=== PATIENT | male | born 1945 | race Caucasian/White ===

== ENCOUNTER → 2024-07-21 | Outpatient (CLI) | payer MEDICARE, SELFPAY ==
[2024-07-21 10:25] LABS: OBS Card Expiration Date 2026/09; OBS Card Lot # 23001; OBS Performed By LAB; OBS QC OK? Yes
[2024-07-21 14:03] LABS: OBS Developer Lot # 23003
[2024-07-21 14:05] LABS: Occult Blood, Stool Negative (Negative); Occult Blood, Stool #2 Negative (Negative); Occult Blood, Stool #3 Negative (Negative)
== END | disposition home or self-care (01) ==
LOC: SLDO 10:18
PROVIDERS: Referring Provider Internal Medicine Cardiovascular Disease; Visit Provider Internal Medicine Cardiovascular Disease
DX: Z12.11 Encounter for screening for malignant neoplasm of colon (principal)
CPT/HCPCS: 82270

== ENCOUNTER 2024-11-26 10:19 | Day surgery (SDC) | payer MEDICARE, SELFPAY ==
--- NOTE | 2024-11-25 07:00 | EKG_ITS ---
[facility] Test Date: 2024-11-25 Pat Name: ERICA HINES Department: Room: - Gender: Male [employer]: TAB : 1945 Requested By: Db Clarke Order Number: [id number] Reading MD: Db Clarke Measurements Intervals [place] Rate: 52 P: 43 MS: 191 QRS: 18 QRSD: 84 T: 22 QT: 422 QTc: 395 Interpretive Statements SINUS BRADYCARDIA Compared to ECG 05/17/2022 16:41:59 Sinus rhythm no longer present Left ventricular hypertrophy no longer present /store/S0/[id number]/ecg/[id number].pdf
[2024-11-25 12:33] LABS: Basophils % (Auto) 0 % (0-2.5); Eosinophils # (Auto) 0.2 Thou/mm3 (0.0-0.5); Eosinophils % (Auto) 3 % (0-10); Hematocrit 42.7 % (41.0-53.0); Hemoglobin 14.1 g/dL (13.5-16.0); Immature Granulocytes % (Auto) 1 % (0-0); Immature Granulocytes Auto 0.03 Thou/mm3 (0.00-0.00); Lymphocytes # (Auto) 1.1 Thou/mm3 (1.0-4.8); Lymphocytes % (Auto) 19 % (10-50); Mean Corpuscular Hemoglobin 30.1 pg (25.0-35.0); Mean Corpuscular Volume 91 fL (80-100); Monocytes # (Auto) 0.7 Thou/mm3 (0.0-0.8); Monocytes % (Auto) 11 % (0-12); Neutrophils # (Auto) 3.8 Thou/mm3 (1.8-7.7); Neutrophils % (Auto) 65 % (37-80); Nucleated Red Blood Cell % 0 /100 WBC (0); Platelet Count 195 Thou/mm3 (140-440); RDW Standard Deviation 40.9 fL (35.1-43.9); Red Blood Count 4.69 Miln/mm3 (4.50-5.90); White Blood Count 5.8 Thou/mm3 (3.8-10.6)
[2024-11-25 12:38] LABS: Anion Gap 8 (7-16); BUN/Creatinine Ratio 18 Ratio (12-20); Blood Urea Nitrogen 31 mg/dL (9-23); Calcium 9.6 mg/dL (8.3-10.6); Carbon Dioxide 29.9 mMol/L (20.0-31.0); Chloride 106 mMol/L (98-107); Creatinine (Component) 1.7 mg/dL (0.6-1.3); Glucose 88 mg/dL (74-106); Osmolality,Calculated 292 (275-295); Potassium 4.4 mMol/L (3.4-5.1); Sodium 144 mMol/L (136-145); eGFR 41 See Note
[2024-11-25 12:42] LABS: INR 1.1 (0.9-1.3); Partial Thromboplastin Time 25.4 Seconds (22.0-36.0); Prothrombin Time 11.5 Seconds (9.0-12.2)
[2024-11-26] VITALS (12 sets, daily range): BP systolic 106–146; BP diastolic 63–90; PULSE 50–57; RESP 10–23; TEMP 36.3–36.5; O2SAT 93–96; BMI 27.7
--- NOTE | 2024-11-26 12:46 | ESOP_ITS ---
RE: ERICA HINES : 1945 DATE OF OPERATION: 11/26/2024 PROCEDURE PERFORMED: 1. Diagnostic left heart cardiac catheterization, selective coronary angiogram, left ventricular angiogram, CPT 59629. 2. Conscious sedation, 30 minute duration. 3. Ultrasound guided access, right radial artery. DIAGNOSES: Coronary artery disease, status post stent placement in the RCA, abnormal stress test. HISTORY AND INDICATIONS: The patient is a 79-year-old male with a history of hypertension, CAD, status post previous myocardial infarction, stent placed on RCA, has been doing well until recently. He has had recurrent shortness of breath with chest pressure. Cardiac stress test was abnormal showing inferior wall perfusion defect, hence coronary angiogram was recommended to assess the patient is a candidate for coronary intervention or revascularization. PROCEDURE IN DETAIL: The patient was brought to cardiac catheterization laboratory where he was given 1 mg of Versed and 50 mcg of fentanyl for sedation. Right radial approach was taken. Right radial artery was cannulated with under ultrasound guidance and 6-[place] Glidesheath introduced. Selective right and left coronary angiogram performed by TIG-4 diagnostic catheter. Left heart catheterization and LV angiogram performed by TIG-4 diagnostic catheter. The patient tolerated the procedure well with no complications. TR band was applied. Hemostasis was secured. Radial cocktail with nitroglycerin and heparin was given. Coronary angiogram showed following findings. The right coronary artery is large and dominant showed evidence of stents in the proximal mid segment, widely patent, no residual stenosis. PDA and PL branches are normal. Left coronary system. Left main coronary artery is normal. Left anterior descending artery showed calcification in proximal LAD, mild plaque less than 10% stenosis. Circumflex artery also showed mild to moderate plaque. No significant stenosis. Left ventricular pressure recorded to be 100/5, EDP 10, aortic pressure 100/60, no gradient across the aortic valve. Left ventricular angiogram showed normal left ventricular wall motion, ejection fraction 70%. SUMMARY OF FINDINGS AND SUGGESTIONS: 1. Normal left ventricular function. 2. Widely patent stents involving the right coronary artery with excellent results. No restenosis. 3. Mild calcification, atherosclerotic plaque involving LAD, circumflex artery, insignificant. RECOMMENDATIONS: The patient is reassured about the absence of significant obstructive coronary artery disease. Prognosis is excellent since he has stents widely patent. Recommended to be aggressive management with statins, aspirin and blood pressure management. cc: Dori Lugo MD DT: 12:16:07 TT: 12:44:00 Ref: [id number] - TID: [id number]
--- NOTE | 2024-11-26 12:50 | PC.NURSE ---
1223 patient is awake, alert, breathing unlabored, s/p LHC by dr Pennington, report received from Daryl RAMIREZ, patient to recover for 3hrs
--- NOTE | 2024-11-26 13:08 | PC.NURSE ---
1306 patient awake, alert, breathing unlabored, no bleeding noted to right wrist, pt ate food tray with no nausea or vomiting, report given to Daryl RAMIREZ to take over patient care
--- NOTE | 2024-11-26 14:00 | PC.NURSE ---
TR band removed about at this time. Surgical site asymptomatic, no active bleeding, no hematoma noted on right upper extremity or around the surgical site. Capillary refill < 3 seconds. No noted changes in color or temperature on right upper extremity. Patient denies general and localized pain, no loss in sensation, no tingling or numbness felt to right upper extremity. Tagaderm and Coban wrap applied. Will continue to monitor
--- NOTE | 2024-11-26 14:15 | PC.NURSE ---
Surgical site remains asymptomatic, no active bleeding, no hematoma noted on right upper extremity or around the surgical site. Capillary refill < 3 seconds. No noted changes in color or temperature on right upper extremity. Patient denies generalized and localized pain, no loss in sensation, no tingling or numbness felt to right upper extremity. Tagaderm and Coban wrap in place, clean, and dry. Will continue to monitor
== END 2024-11-26 15:10 | disposition home or self-care (01) ==
PROVIDERS: PCP Internal Medicine; Referring Provider Internal Medicine Cardiovascular Disease; Visit Provider Internal Medicine Cardiovascular Disease
PROC: (CPT 93458; principal; 2024-11-26 11:15)
DX: I25.118 Atherosclerotic heart disease of native coronary artery with other forms of angina pectoris (principal); I10 Essential (primary) hypertension; I25.2 Old myocardial infarction; Z95.5 Presence of coronary angioplasty implant and graft; Z01.810 Encounter for preprocedural cardiovascular examination; E11.9 Type 2 diabetes mellitus without complications; E78.5 Hyperlipidemia, unspecified
CPT/HCPCS: 93458; 36415; 80048; 85025; 85610; 85730; 93005; 99152; A4649; C1769; C1887; C1894; J0171; J0461; J1643; J2250; J2310; J2371; J3010; J3490; J2305

== ENCOUNTER → 2025-01-04 | Outpatient (CLI) | payer MEDICARE, SELFPAY ==
[2025-01-04 12:20] LABS: Collection Type, Urine Clean Catch
[2025-01-04 13:05] LABS: Basophils % (Auto) 1 % (0-2.5); Eosinophils # (Auto) 0.2 Thou/mm3 (0.0-0.5); Eosinophils % (Auto) 4 % (0-10); Hematocrit 39.3 % (41.0-53.0); Hemoglobin 13.6 g/dL (13.5-16.0); Immature Granulocytes % (Auto) 0 % (0-0); Immature Granulocytes Auto 0.01 Thou/mm3 (0.00-0.00); Lymphocytes # (Auto) 1.2 Thou/mm3 (1.0-4.8); Lymphocytes % (Auto) 21 % (10-50); Mean Corpuscular HGB Conc 34.6 g/dl (31.0-37.0); Mean Corpuscular Hemoglobin 30.7 pg (25.0-35.0); Mean Corpuscular Volume 89 fL (80-100); Monocytes # (Auto) 0.7 Thou/mm3 (0.0-0.8); Monocytes % (Auto) 11 % (0-12); Neutrophils # (Auto) 3.8 Thou/mm3 (1.8-7.7); Neutrophils % (Auto) 64 % (37-80); Nucleated Red Blood Cell % 0 /100 WBC (0); Platelet Count 198 Thou/mm3 (140-440); RDW Standard Deviation 38.9 fL (35.1-43.9); Red Blood Count 4.43 Miln/mm3 (4.50-5.90)
[2025-01-04 13:15] LABS: Parathyroid Hormone Intact 93.7 pg/ml (18.5-88.0)
[2025-01-04 13:21] LABS: Alanine Aminotransferase 12 U/L (10-49); Albumin, Serum 4.5 gm/dL (3.4-4.8); Albumin/Globulin Ratio 1.6 (1.2-2.2); Alkaline Phosphatase 69 U/L (46-116); Anion Gap 9 (7-16); Aspartate Amino Transferase 14 U/L (0-34); BUN/Creatinine Ratio 21 Ratio (12-20); Bilirubin,Total 1.2 mg/dL (0.3-1.2); Blood Urea Nitrogen 35 mg/dL (9-23); Calcium 9.6 mg/dL (8.3-10.6); Calcium (Corrected) 9.6 mg/dL (8.5-10.1); Carbon Dioxide 26.8 mMol/L (20.0-31.0); Chloride 107 mMol/L (98-107); Cholesterol 128 mg/dL (132-200); Creatinine (Component) 1.7 mg/dL (0.6-1.3); Globulin 2.9 gm/dL (2.3-3.5); Glucose 105 mg/dL (74-106); HDL Cholesterol 32 mg/dL (40-60); LDL Cholesterol,Calculated 76 mg/dL (0-130); Osmolality,Calculated 292 (275-295); Potassium 4.4 mMol/L (3.4-5.1); Sodium 143 mMol/L (136-145); Thyroid Stimulating Hormone 0.85 uIU/mL (0.55-4.78); Total Protein 7.4 gm/dL (5.7-8.2); Triglycerides 98 mg/dL (30-150); eGFR 41 See Note
[2025-01-04 13:58] LABS: Bilirubin,Urine Negative (Negative); Blood,Urine Negative (Negative); Clarity,Urine Clear (Clear/Hazy); Color,Urine Lt-Yellow (Lt Yel-Yel); Glucose, Urine Negative (Negative); Ketones,Urine Negative (Negative); Leukocyte Esterase,Urine Negative (Negative); Nitrite,Urine Negative (Negative); PH,Urine 5.5 (5.0-7.0); Protein,Urine Negative (Neg - Trace); RBC,Urine 4 /hpf (0-3); Specific Gravity,Urine 1.022 (1.001-1.035); Squamous Epithelial Cell,Urine < 1 /hpf (0-5); Urobilinogen,Urine Negative mg/dL (0.0-1.0); WBC,Urine < 1 /hpf (0-5)
[2025-01-04 14:02] LABS: Creatinine MALB Rnd Ur 150 mg/dL (30-125); Microalbumin Creat Ratio 6 mg/gCrea (<30); Microalbumin, Random Urine 9 mg/L (0-300)
== END | disposition home or self-care (01) ==
LOC: COPL 11:52
PROVIDERS: PCP Internal Medicine; Referring Provider Internal Medicine; Visit Provider Internal Medicine
DX: I12.9 Hypertensive chronic kidney disease with stage 1 through stage 4 chronic kidney disease, or unspecified chronic kidney disease (principal); N18.30 Chronic kidney disease, stage 3 unspecified; E78.5 Hyperlipidemia, unspecified
CPT/HCPCS: 36415; 80053; 80061; 81001; 82043; 82570; 83970; 84443; 85025

== ENCOUNTER → 2025-01-28 | Outpatient (CLI) | payer MEDICARE, SELFPAY ==
[2025-01-28 14:22] LABS: OBS Performed By LAB; OBS QC OK? Yes
[2025-01-28 15:09] LABS: OBS Developer Lot # 551749
[2025-01-28 15:10] LABS: Occult Blood, Stool Negative (Negative); Occult Blood, Stool #2 Negative (Negative); Occult Blood, Stool #3 Negative (Negative)
== END | disposition home or self-care (01) ==
LOC: SLDO 13:56
PROVIDERS: Referring Provider Internal Medicine; Visit Provider Internal Medicine
DX: Z12.11 Encounter for screening for malignant neoplasm of colon (principal)
CPT/HCPCS: 82270

== ENCOUNTER → 2025-05-13 | Outpatient (CLI) | payer MEDICARE, BC, SELFPAY ==
[2025-05-13 11:27] LABS: Alanine Aminotransferase 10 U/L (10-49); Albumin, Serum 4.3 gm/dL (3.4-4.8); Albumin/Globulin Ratio 1.7 (1.2-2.2); Alkaline Phosphatase 69 U/L (46-116); Anion Gap 9 (7-16); Aspartate Amino Transferase 12 U/L (0-34); BUN/Creatinine Ratio 12 Ratio (12-20); Bilirubin,Total 0.9 mg/dL (0.3-1.2); Blood Urea Nitrogen 21 mg/dL (9-23); Calcium 9.9 mg/dL (8.3-10.6); Calcium (Corrected) 9.9 mg/dL (8.5-10.1); Carbon Dioxide 26.3 mMol/L (20.0-31.0); Cardiac Risk Estimate 3.8 RATIO (4.0-6.7); Chloride 109 mMol/L (98-107); Cholesterol 129 mg/dL (132-200); Creatinine (Component) 1.7 mg/dL (0.6-1.3); Globulin 2.5 gm/dL (2.3-3.5); Glucose 97 mg/dL (74-106); HDL Cholesterol 34 mg/dL (40-60); LDL Cholesterol,Calculated 75 mg/dL (0-130); Osmolality,Calculated 289 (275-295); Potassium 4.3 mMol/L (3.4-5.1); Sodium 144 mMol/L (136-145); Total Protein 6.8 gm/dL (5.7-8.2); Triglycerides 99 mg/dL (30-150); eGFR 41 See Note
== END | disposition home or self-care (01) ==
LOC: COPL 09:41
PROVIDERS: PCP Internal Medicine; Referring Provider Internal Medicine; Visit Provider Internal Medicine Cardiovascular Disease
DX: I12.9 Hypertensive chronic kidney disease with stage 1 through stage 4 chronic kidney disease, or unspecified chronic kidney disease (principal); N18.30 Chronic kidney disease, stage 3 unspecified; E78.5 Hyperlipidemia, unspecified
CPT/HCPCS: 36415; 80053; 80061